=== PATIENT | male | born 1955 | race Hispanic/Latino ===

== ENCOUNTER 2024-02-10 07:47 | Day surgery (SDC) | payer MEDICARE, MEDICAID ==
[~2024-02-10] VITALS: Ht 167.6 cm; Wt 103.0 kg
[~2024-02-10 07:47] MED LIST: BAYER ASPIRIN E81 MG PO; BUMETANIDE1 MG PO; LISPRO SC; MIDODRINE5 MG PO; OMEPRAZOLE DR40 MG PO; OZEMPIC2 MG SC; PROSCAR5 MG PO; SIMVASTATIN40 MG PO; TAMSULOSIN0.4 MG PO; TRESIBA FL200 UNIT/M SC
[2024-02-10] MEDS ORDERED: SODIUM CHLORIDE 0.9% 1,000 ML IV ONE (07:50)
[2024-02-10 09:26] VITALS: BP 142/74
[2024-02-10] MEDS ORDERED: PROPOFOL 200 MG/20 ML VIAL IV ONE (12:58)
[2024-02-10] MEDS ORDERED: LIDOCAINE HCL 2% 2ML SDV IV ONE (12:58)
[2024-02-10] MEDS ORDERED: GLYCOPYRROLATE 0.2 MG/ML IV ONE (12:58)
== END 2024-02-10 09:28 | disposition home or self-care (01) ==
LOC: ENDO 07:47
PROVIDERS: ATTEND Internal Medicine Gastroenterology
PROC: 0DBK8ZX Excision of Ascending Colon, Via Natural or Artificial Opening Endoscopic, Diagnostic (ICD-10-PCS; principal; 2024-02-10)
PROC: 0DBL8ZX Excision of Transverse Colon, Via Natural or Artificial Opening Endoscopic, Diagnostic (ICD-10-PCS; 2024-02-10)
PROC: 0DBN8ZX Excision of Sigmoid Colon, Via Natural or Artificial Opening Endoscopic, Diagnostic (ICD-10-PCS; 2024-02-10)
PROC: 0DBM8ZX Excision of Descending Colon, Via Natural or Artificial Opening Endoscopic, Diagnostic (ICD-10-PCS; 2024-02-10)
DX: Z12.11 Encounter for screening for malignant neoplasm of colon (principal); D12.2 Benign neoplasm of ascending colon; D12.4 Benign neoplasm of descending colon; D12.5 Benign neoplasm of sigmoid colon; D12.3 Benign neoplasm of transverse colon; K64.8 Other hemorrhoids; N18.6 End stage renal disease; Z99.2 Dependence on renal dialysis; K59.09 Other constipation